=== PATIENT | female | born 1990 | race Caucasian/White ===

== ENCOUNTER 2018-05-03 02:06 | Emergency (ER) | payer OTHER ==
--- NOTE | 2018-05-03 03:41 | PDOC ---
History of Present Illness - General Chief Complaint: Substance Abuse Stated Complaint: DETOX Time Seen by Provider: 05/03/18 02:07 History Source: Patient Exam Limitations: No Limitations - History of Present Illness Initial Comments: 05/03/18 05:19 Best Contact:Elank PCP:NONE Pmhx: Opiate dependency since 2015 Pshx: (6)C sections....03/2018, 2012, 2010, 2010, 2000, 2000 Allergies:NKDA FH:0 Social Hx: Cigarettes/ 12 cigarettes daily [id number] Alcohol/ social Drugs/ Cocaine, opiate LMP: 06/16/2017 27-year-old female presents to the emergency department requesting for opiate detox. Patient states she's been addicted to opiates and wishes to have it out of her system. Patient states she is approximately one month . Patient last used cocaine and OxyContin earlier in the day. Patient denies fever , chills, nausea/vomiting, diarrhea, headache, dizziness, lightheadedness, facial pain, earache, sore throat, neck pain/stiffness, back pain, chest pain, shortness of breath, abdominal pains, flank pains, urinary symptoms, Mack numbness or tingling sensation. Patient has no medical complaints. Review of Systems - Review of Systems Able to Perform ROS?: Yes Comments:: 05/03/18 05:16 CONSTITUTIONAL: Absent: fever, chills, diaphoresis, generalized weakness, malaise, loss of appetite HEENT: Absent: rhinorrhea, nasal congestion, throat pain, throat swelling, difficulty swallowing, mouth swelling, ear pain, eye pain, visual Changes CARDIOVASCULAR: Absent: chest pain, loss of consciousness, palpitations, irregular heart rate, peripheral edema RESPIRATORY: Absent: cough, shortness of breath, dyspnea with exertion, orthopnea, wheezing, stridor, hemoptysis GASTROINTESTINAL: Absent: abdominal pain, abdominal distension, nausea, vomiting, diarrhea, constipation, melena, hematochezia GENITOURINARY: Absent: dysuria, frequency, urgency, hesitancy, hematuria, flank pain, genital pain MUSCULOSKELETAL: Absent: myalgia, arthralgia, joint swelling SKIN: Absent: rash, itching, pallor HEMATOLOGIC/IMMUNOLOGIC: Absent: easy bleeding, easy bruising, lymphadenopathy, frequent infections ENDOCRINE: Absent: unexplained weight gain, unexplained weight loss, heat intolerance, cold intolerance NEUROLOGIC: Absent: headache, focal weakness or paresthesias, dizziness, unsteady gait, seizure, mental status changes, bladder or bowel incontinence PSYCHIATRIC: Absent: anxiety, depression, suicidal or homicidal ideation, hallucinations. Is the patient limited Ukrainian proficient: No *Physical Exam - Physical Exam Comments: 05/03/18 05:16 GENERAL: Well developed, well nourished. Awake and alert. No acute distress. HEENT: Normocephalic, atraumatic. PERRLA, EOMI. No conjunctival pallor. Sclera are non- icteric. Moist mucous membranes. Oropharynx is clear. NECK: Supple. Full ROM. No JVD. Carotid pulses 2+ and symmetric, without bruits. No thyromegaly. No lymphadenopathy. CARDIOVASCULAR: Regular rate and rhythm. No murmurs, rubs, or gallops. Distal pulses are 2+ and symmetric. PULMONARY: No evidence of respiratory distress. Lungs clear to auscultation bilaterally. No wheezing, rales or rhonchi. ABDOMINAL: Soft. Non-tender. Non-distended. No rebound or guarding. No organomegaly. Normoactive bowel sounds. MUSCULOSKELETAL Normal range of motion at all joints. No bony deformities or tenderness. No CVA tenderness. EXTREMITIES: No cyanosis. No clubbing. No edema. No calf tenderness. SKIN: Warm and dry. Normal capillary refill. No rashes. No jaundice. NEUROLOGICAL: Alert, awake, appropriate. Cranial nerves 2-12 intact. No deficits to light touch and temperature in face, upper extremities and lower extremities. No motor deficits in the in face, upper extremities and lower extremities. Normoreflexic in the upper and lower extremities. Normal speech. Toes are down- going bilaterally. Gait is normal without ataxia. PSYCHIATRIC: Cooperative. Good eye contact. Appropriate mood and affect. ED Treatment Course - LABORATORY CBC & Chemistry Diagram: 05/03/18 04:40 05/03/18 04:40 *DC/Admit/Observation/Transfer Diagnosis at time of Disposition: Opiate dependence Qualifiers: Substance use status: uncomplicated Qualified Code(s): F11.20 - Opioid dependence, uncomplicated - Discharge Dispostion Condition at time of disposition: Stable Decision to Admit order: No - Referrals Referrals: Ari Cedeno MD [Staff Physician] - - Patient Instructions Additional Instructions: Return back to the ER for any concerns - Post Discharge Activity Progress Note - Progress Note Progress Note: 0330HRS: Spoke to Lidia/nursing janitor supervisor at [address] [place] [address] detox center and was informed that there will be 3 woman's bed opened for detox at about 9:30 in the morning. Report can be given at 8:30 AM. 0700HRS: Signed out to THIERRY Valencia
[2018-05-03 05:04] LABS: BASO % 0.6 % (0-2.0); EOS % 3.2 % (0-4.5); HEMOGLOBIN 10.9 GM/dL (10.7-15.3); LYMPH % 25.3 % (8-40); MCH 26.7 pg (25.7-33.7); MCHC 32.9 g/dl (32.0-36.0); MEAN CELL VOLUME 81.1 fl (80-96); MEAN PLT VOLUME 7.3 fl (7.5-11.1); MONO % 7.1 % (3.8-10.2); NEUT % 63.8 % (42.8-82.8); PLATELET COUNT 236 K/MM3 (134-434); RBC 4.06 M/mm3 (3.60-5.2); RDW 17.9 % (11.6-15.6)
[2018-05-03 05:09] LABS: URINE APPEARANCE CLEAR; URINE BILIRUBIN NEGATIVE (<2.0 mg/dL); URINE COLOR YELLOW; URINE GLUCOSE (UA) NEGATIVE (NEGATIVE); URINE KETONE NEGATIVE (NEGATIVE); URINE LEUK ESTERASE NEGATIVE (NEGATIVE); URINE NITRITE NEGATIVE (NEGATIVE)
[2018-05-03 05:13] LABS: METHADONE, UR NEGATIVE ng/ml (CUTOFF=300); PHENCYCLIDINE,URINE NEGATIVE ng/ml (CUTOFF=25); URINE AMPHETAMINES NEGATIVE ng/ml (CUTOFF=500); URINE BARBITURATES NEGATIVE ng/ml (CUTOFF=200); URINE BENZODIAZEPINES NEGATIVE ng/ml (CUTOFF=200)
[2018-05-03 05:15] LABS: COCAINE, UR POSITIVE ng/ml (CUTOFF=300)
[2018-05-03 05:16] LABS: OPIATES, URI POSITIVE ng/ml (CUTOFF=300)
[2018-05-03 05:19] LABS: URINE PROTEIN 2+ (NEGATIVE)
[2018-05-03 05:32] LABS: ALBUMIN 3.4 g/dl (3.4-5.0); ALK PHOS 97 U/L (45-117); ANION GAP 7 (8-16); BILIRUBIN,TOTAL 0.4 mg/dL (0.2-1.0); BLOOD UREA NITROGEN 19 mg/dL (7-18); CHLORIDE 109 mmol/L (98-107); CO2 25 mmol/L (21-32); CREATININE 0.6 mg/dL (0.55-1.02); GLUCOSE,RANDOM 95 mg/dL (74-106); HCG,QUALITATIVE URINE NEGATIVE; POTASSIUM 4.1 mmol/L (3.5-5.1); SGOT/AST 34 U/L (15-37); SGPT/ALT 53 U/L (12-78); SODIUM 141 mmol/L (136-145); TOT PROT 7.3 g/dl (6.4-8.2)
[2018-05-03 05:36] LABS: EPI CELLS RARE /HPF (FEW); URINE MUCUS RARE
[2018-05-03 07:34] VITALS: BMI 22.6
--- NOTE | 2018-05-03 08:26 | PDOC ---
ED Treatment Course - LABORATORY CBC & Chemistry Diagram: 05/03/18 04:40 05/03/18 04:40 - ADDITIONAL ORDERS Additional order review: Laboratory Results 05/03/18 05/03/18 05/03/18 04:40 04:40 04:40 Sodium 141 Potassium 4.1 Chloride 109 H Carbon Dioxide 25 Anion Gap 7 L BUN 19 H Creatinine 0.6 Creat Clearance w eGFR > 60 Random Glucose 95 Calcium 9.0 Total Bilirubin 0.4 AST 34 ALT 53 Alkaline Phosphatase 97 Total Protein 7.3 Albumin 3.4 Urine Color Yellow Urine Appearance Clear Urine pH 5.0 Ur Specific [place] 1.031 Urine Protein 2+ H Urine Glucose (UA) Negative Urine Ketones Negative Urine Blood 3+ H Urine Nitrite Negative Urine Bilirubin Negative Urine Urobilinogen 2.0 H Ur Leukocyte Esterase Negative Urine WBC (Auto) 35 Urine RBC (Auto) 315 Ur Epithelial Cells Rare Urine Mucus Rare Urine HCG, Qual Negative Opiates Screen Positive Methadone Screen Negative Barbiturate Screen Negative Phencyclidine Screen Negative Ur Amphetamines Screen Negative MDMA (Ecstasy) Screen Negative Benzodiazepines Screen Negative Cocaine Screen Positive U Marijuana (THC) Screen Negative 05/03/18 04:40 RBC 4.06 MCV 81.1 MCHC 32.9 RDW 17.9 H MPV 7.3 L Neutrophils % 63.8 Lymphocytes % 25.3 Monocytes % 7.1 Eosinophils % 3.2 Basophils % 0.6 Progress Note - Progress Note Progress Note: I have received report from THIERRY Reed regarding this patient. Pt's initial chief complaint: opiate detox Pt's work up completed prior to sign out: labs, UA, urine tox Pt treatment given from prior staff: none Pt plan to be completed: Admit to [facility] after 8:30am Dispo: Admit to [facility] for detox Medical Decision Making - Medical Decision Making A/P: 27 y/o female in the ER for opiate detox. The patient was initially evaluated by THIERRY Reed. WIll send to [facility] after 8:30 when they have a female bed available. Spoke with Dr. Mena. He states we can send the patient over to be evaluated. The patient will be discharged and brought to [facility]. *DC/Admit/Observation/Transfer Diagnosis at time of Disposition: Opiate dependence Qualifiers: Substance use status: uncomplicated Qualified Code(s): F11.20 - Opioid dependence, uncomplicated - Discharge Dispostion Disposition: HOME Condition at time of disposition: Stable - Referrals Referrals: Ari Cedeno MD [Staff Physician] - - Patient Instructions Additional Instructions: Return back to the ER for any concerns - Post Discharge Activity
[2018-05-03 11:02] VITALS: BP 150/60; PULSE 71; TEMP 98.2
== END 2018-05-03 11:00 | disposition home or self-care (01) ==
LOC: JER 02:06
DX: F11.20 Opioid dependence, uncomplicated (principal); O90.89 Other complications of the puerperium, not elsewhere classified
CPT/HCPCS: 36415; 80053; 80307; 81003; 81015; 84703; 85025; 99282-25